=== PATIENT | male | born 1955 | race Caucasian/White ===

== ENCOUNTER → 2020-09-04 14:24 | Outpatient (BNVA) | payer OTHER, SELFPAY | PROVIDERS: Visit Provider Urology ==

== ENCOUNTER 2022-11-23 14:30 | Outpatient (REF) | payer MEDICARE, OTHER, SELFPAY ==
--- NOTE | ~2022-11-23 | US_ITS ---
EXAMINATION: US SCROTUM CLINICAL INFORMATION: Testicular mass. COMPARISON: None available. TECHNIQUE: A sonogram of the scrotum was performed assessing sinha-scale appearance and color Doppler flow. Spectral Doppler analysis of the arterial and venous flow were performed in the testes bilaterally. FINDINGS: Left: Left testicle measures 4.9 x 2.4 x 3.2 cm, volume 20 mL. No focal testicular parenchymal lesions are visualized. Spectral Doppler analysis of the arterial and venous flow is normal in the right testis. Left epididymal head is normal in size. There is a focal hyperechoic area seen in or adjacent to the tail of the epididymis . This measures 9 x 7 x 8 mm. This is hyperechoic and mobile /swirling. It is uncertain whether this is related to flow of sperm/megasperm. Differential would include Flaria infection/scrotal Filariasis. No right hydrocele or varicocele is seen. Left epididymal Doppler flow is normal. Right: Surgically removed. US/US scrotum IMPRESSION: Normal left testicle. Mobile echogenic density in the inferior scrotum in or adjacent to the tail of the epididymis. Differential would include flow of sperm/megasperm and Flaria infection/scrotal Fliariasis.
== END 2022-11-23 14:31 | disposition home or self-care (01) ==
LOC: HO.US 14:30
PROVIDERS: Visit Provider Urology
DX: C62.90 Malignant neoplasm of unspecified testis, unspecified whether descended or undescended (principal); N50.82 Scrotal pain
CPT/HCPCS: 76870

== ENCOUNTER 2022-12-30 15:01 | Outpatient (AMB) | payer MEDICARE, OTHER, SELFPAY ==
--- NOTE | 2022-12-30 15:04 | MHC.OFFVIS ---
Intake Intake Visit Reasons: 2Y LH/Imaging(set) Intake Note: Patient is present for Follow Up Urology Med: None Antibiotic Allergy:None Blood Thinner: none Pharmacy: [facility] Allergies No Known Allergies Allergy (Verified 12/30/22 15:06) HPI HPI Comments History of Present Illness Details Bhanu Escobedo is a very pleasant male. 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 He is a patient of Dr. Esparza. He is seen in the office today for the following urologic conditions. 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 Primary complaint of Seminoma followup pT1 The symptoms started or were observed: August 09 2015. Noted lump on testicle. Imaging includes Normal markers at diagnosis. October 2015 - AFP 1.1, BHCG < 29 June 2016 AFP 1.1, BHCG < 29 Jan 2017 AFP 0.8, HCG < [address] scan , reported as normal July 2018 CT Normal. Based on imaging and exam diagnosis is most consistent with 08/14 - seminoma - orchiectomy August 16. Prior therapy(ies) include orchiectomy, single dose cisplatinum. Current symptoms include none PFSH Medical History HTN (hypertension) Seminoma Testicular mass Surgical History History of surgery Review of Systems Const Denies chills and Denies fever(s) Card Reports no additional complaints and Denies syncope Resp Denies cough GI Denies abdominal pain and Denies heartburn Reports as per HPI and Denies change in libido Neuro Denies syncope Psych Denies change in libido Endo Denies change in libido Physical Exam Const General: cooperative, healthy appearing, comfortable and no acute distress Orientation/consciousness: patient oriented x3 HEENT Face and sinus: Yes normal facial exam Mouth: moist mucous membranes Neck Neck: Yes normal visual inspection, Yes full ROM and Yes trachea midline Chest Chest palpation & inspection: normal inspection of the chest Resp Effort & Inspection: normal respiratory effort, able to speak in complete sentences and no respiratory distress GI Inspection: Yes normal to inspection Back/Spine/Pelvis Cervical Spine: normal cervical lordosis Thoracic/Lumbar Spine: thoracic and lumbar spine normal to inspection Skin General skin exam: no rashes or lesions noted Neuro General: patient oriented x3, gait normal, tone normal and moves all extremities Extrem General: Yes normal to inspection and Yes capillary refill normal Assessment & Plan Assessment & Plan (1) Seminoma: Code(s): C62.90 - Malignant neoplasm of unspecified testis, unspecified whether descended or undescended Plan P.r.n. Patient Instructions: Imaging studies, laboratory and physical exam results were discussed and reviewed in detail. No major barriers to patient understanding were identified. An opportunity to ask questions regarding the treatment plan was provided. All questions were answered. The patient expressed understanding and agreement with the above treatment plan. The patient is aware they should contact our office by phone for worsening of their current condition or the appearance of new urologic symptoms. Compliance is encouraged with any medications and followup testing that is ordered. It is a privilege to participate in the urologic care of your patient. If you have any questions or concerns regarding treatment for the above conditions, or other urologic issues, please do not hesitate to contact me. The office telephone contact is [phone]. This note is constructed using voice recognition software. While every effort has been made to ensure accuracy call center consultant errors may have been included. Yours sincerely, Dr Abdoulaye Hill MD, [facility] - Urology Providers of Expert, Compassionate Care for the Genitourinary System Coding Level of Care Code Est Pt Level 4 (51000) Diagnoses Seminoma C62.90
== END 2022-12-30 16:31 | disposition home or self-care (01) ==
PROVIDERS: Visit Provider Urology
DX: C62.90 Malignant neoplasm of unspecified testis, unspecified whether descended or undescended (principal)
CPT/HCPCS: 99214

== ENCOUNTER → 2022-12-30 15:01 | Outpatient (BNVA) | payer OTHER, SELFPAY | PROVIDERS: Visit Provider Urology | DX: C62.90 Malignant neoplasm of unspecified testis, unspecified whether descended or undescended (principal) | CPT/HCPCS: 99212 ==